=== PATIENT | female | born 1970 | race Caucasian/White ===

== ENCOUNTER → 2016-12-19 | Day surgery (SDC) | payer BC ==
[~2016-12-19] MED LIST: ACETAMINOPHEN/HYDROcodone 325 MG/7.5 MG TAB ONE; BUPIVACAINE HCL PF 0.25% 30 ML VIAL ONE; KETOROLAC TROMETHAMINE 30 MG/ML (IVP) VIAL IV PUSH ONE; LACTATED RINGER'S 1000 ML INJ 1,000 ML ONE; MIDAZOLAM HCL 2 MG/2 ML VIAL ONE; MORPHINE SULFATE 4 MG/ML INJ ONE; ONDANSETRON HCL 4 MG/2 ML VIAL IV PUSH ONE; PROPOFOL 200 MG/20 ML AMP IV ONE; Z.0.NO CURRENT MEDS; ceFAZolin 2 GM PREMIX 50 ML ONE
--- NOTE | 2016-12-20 08:33 | MP ---
cc: JESUS MANUEL LOPEZ DATE OF SURGERY 12/19/2016 PREOPERATIVE DIAGNOSIS Menorrhagia and high-grade cervical dysplasia, ALVIN-II PROCEDURE Exam under anesthesia, diagnostic hysteroscopy, endometrial sampling, endometrial ablation with NovaSure cold knife cone biopsy. POSTOPERATIVE DIAGNOSIS Menorrhagia and high-grade cervical dysplasia, ALVIN-II SURGEON Jesus Manuel Lopez MD ANESTHESIA General with LMA ESTIMATED BLOOD LOSS Minimal DRAINS None OPERATIVE FINDINGS The patient had a large patulous cervix. No focal abnormality present. Lugol's solution demonstrated no focal staining. The endometrial cavity was symmetrical. No focal abnormality. Endometrial measurements were set at 6.5 and 2.5 generator setting calculated 89 landry on the NovaSure. INDICATIONS FOR THE PROCEDURE Patient with recent diagnosis of high-grade cervical dysplasia. Recommendation is to proceed with cold knife cone excisional biopsy. The patient also has persistent heavy menstrual bleeding with no specific etiology. Recommendation was to proceed with diagnostic endoscopy, sampling of endometrium and ablation of the endometrial cavity with NovaSure. Consent was signed. The patient received Ancef 2 grams prophylactically. PROCEDURE DESCRIPTION The patient was taken to the operating room in stable condition and underwent general anesthesia with LMA placement. She was carefully positioned in the dorsolithotomy position using candy-cane stirrups. Sequentials were placed on the lower extremities for VTE prophylaxis. She had appropriate padding where necessary. Time-out was conducted and agreed by all present in the room. The patient was adequate prepped and draped. Examination revealed a midline cervix. Cervix was secured with a single-tooth tenaculum. An application of Lugol's demonstrated no focal abnormality. The uterine sound was placed gently to about 9 cm. The cervix was then dilated to accommodate a 5 mm rigid hysteroscope which was inserted under direct vision. Examination of the cavity was as described above. Curettings of the endometrial cavity were obtained and the NovaSure device was used. Complete electrodesiccation of the cavity was complete after the generator completed its cycle. Again 89 landry were generated on the NovaSure. Re-examination of the cavity demonstrated a good result. There was no perforation. No active bleeding. At the completion of the ablation, the cone biopsy was conducted. A #11 blade was used to make a conical shaped excision of the exocervix. A number one silk suture was placed at 12 o'clock position. The base of the cone biopsy was then coagulated using the LEEP device to cauterize the base of the biopsy site to control hemostasis. An excellent result was noted. At the completion of the case, Lugol's solution was applied. No active bleeding or hematoma was incurred. At the completion of the case, final count was correct. The patient was stable. She was taken to the recovery room on room air. MD FIDE Weeks/ELMER /9:09 AM /8:22 AM
== END | disposition home or self-care (01) ==
LOC: ESDC 06:49
PROVIDERS: ATTEND Obstetrics & Gynecology
DX: N92.0 Excessive and frequent menstruation with regular cycle (principal); R87.613 High grade squamous intraepithelial lesion on cytologic smear of cervix (HGSIL)
CPT/HCPCS: 00940; 00952; 57520; 58563; 88305; 88307; J0690; J1885; J2250; J2270; J2405; J3010; J7120